=== PATIENT | female | born 1950 | race African-American/Black ===

== ENCOUNTER 2017-12-19 19:22 | Emergency (ER) | payer MEDICARE ==
[~2017-12-19] VITALS: Ht 162.6 cm; Wt 124.0 kg
[~2017-12-19 19:22] MED LIST: AMLODIPINE10 MG PO; AMLODIPINE5 MG PO; AMOXICILLIN500 M1 OR; ANTIVERT25 MG OR; ASPIRIN81 M1 OR; CEFDINIR300 MG PO; D3 20002000 UNIT PO; DARVOCET N-100100 - OR; FLEXERIL OR; FLEXERIL PO; FOSRENOL1000 MG PO; IBUPROFEN600 MG PO; LISINOPRIL20 MG PO; LISINOPRIL5 MG OR; MECLIZINE25 MG PO; MEDDOSEPAK PO; METOPROLOL TART50 MG OR; METOPROLOL TART50 MG PO; NAPROSYN500 MG OR; NEURONTIN100 MG PO; OMNICEF300 M1 PO; PHOSLO667 MG PO; PLAVIX75 MG PO; PREDNISONE10 MG PO; RENAL OR; RENAL PO; RENVELA800 MG PO; SENSIPAR30 MG PO; SILVADENE1 % EX; SM ASPIRIN81 M1 OR; ST JOSEPH75 MG OR; TRAMADOL HCL50 MG PO; TRIPHROCAPS PO; ULTRAM50 M1 PO; ULTRAM50 MG OR; [UNRECOGNIZED DRUG - OTHER] PO
[2017-12-19] MEDS ORDERED: LISINOPRIL10 M1 PO (19:49)
[2017-12-19] MEDS ORDERED: TRAMADOL HYDROC50 MG PO (20:56)
[2017-12-19 21:05] VITALS: BP 102/49
== END 2017-12-19 21:05 | disposition home or self-care (01) ==
LOC: ED 19:22
DX: M17.0 Bilateral primary osteoarthritis of knee (principal); I12.0 Hypertensive chronic kidney disease with stage 5 chronic kidney disease or end stage renal disease; N18.6 End stage renal disease; M10.9 Gout, unspecified; Z99.2 Dependence on renal dialysis

== ENCOUNTER 2020-10-06 07:02 | Emergency (ER) | payer MEDICARE ==
[~2020-10-06] VITALS: Ht 162.6 cm; Wt 119.0 kg
[~2020-10-06 07:02] MED LIST changes: +LISINOPRIL10 M1 PO; +TRAMADOL HYDROC50 MG PO
[2020-10-06 07:49] LABS: HEMATOCRIT 42.5 % (37.0-47.0); HEMOGLOBIN 12.9 g/dl (12.0-16.0); IMMATURE GRANULOCYTES 0.6 % (0.0-5.0); MEAN CORPUSCULAR HGB 32.2 pG CALC (26.0-32.0); MEAN CORPUSCULAR HGB CONC 30.4 g/dL CAL (32.0-36.0); NEUT# 6.57 thou/uL (2.00-7.15); RED BLOOD COUNT 4.01 mill/uL (4.20-5.60); RED CELL DISTRI WIDTH 14.6 % (11.5-15.5)
[2020-10-06 08:05] LABS: ACT PARTIAL THROMBO TIME 28.2 SECONDS (20.0-32.5); ALBUMIN 4.1 g/dL (3.2-5.0); BILIRUBIN, TOTAL 0.7 mg/dL (0.0-1.4); INTERNATIONAL NORMALIZED RATIO 1.1 RATIO (0.7-1.3); MAGNESIUM 2.3 mg/dL (1.6-2.3); POTASSIUM 4.9 mmol/l (3.5-5.1); PROTHROMBIN TIME 10.8 SECONDS (9.0-12.5)
[2020-10-06 08:23] LABS: CREATININE 13.2 mg/dL (0.5-1.0)
[2020-10-06 10:14] VITALS: BP 79/45
[2020-10-06 12:23] LABS: TSH, 3RD GENERATION 0.65 uIU/mL (0.47 - 4.68)
== END 2020-10-06 10:49 ==
LOC: ED 07:02
DX: U07.1 COVID-19 (principal); R09.02 Hypoxemia; I13.2 Hypertensive heart and chronic kidney disease with heart failure and with stage 5 chronic kidney disease, or end stage renal disease; I50.9 Heart failure, unspecified; N18.6 End stage renal disease; Z99.2 Dependence on renal dialysis
CPT/HCPCS: J0131